=== PATIENT | female | born 1970 | race American Indian/Alaskan Native ===

== ENCOUNTER 2020-04-11 19:27 | Emergency (ER) | payer MEDICARE ==
[2020-04-11] MEDS ORDERED: ASPIRIN 325 MG TAB PO ONE (19:46)
[2020-04-11 19:47] VITALS: BP 127/77
--- NOTE | 2020-04-11 20:21 | XRay Report ---
CHEST 2 VIEWS INDICATION / CLINICAL INFORMATION: Chest Pain. COMPARISON: None available. FINDINGS: SUPPORT DEVICES: None. HEART / MEDIASTINUM: No significant abnormality. LUNGS / PLEURA: No significant pulmonary or pleural abnormality. .No pneumothorax. ADDITIONAL FINDINGS: No significant additional findings. IMPRESSION: 1. No acute findings. Signer Name: Jovanny May MD Signed: 04/11/2020 8:16 PM Workstation Name: [id number]
[2020-04-11 20:27] LABS: Hematocrit 38.7 % (30.3-42.9); Hemoglobin 12.3 gm/dl (10.1-14.3); Mean Corpuscular HGB Conc 32 % (30-34); Mean Corpuscular Volume 79 fl (79-97); Platelet Count 227 K/mm3 (140-440); Red Blood Count 4.92 M/mm3 (3.65-5.03)
[2020-04-11 20:29] LABS: BUN/Creatinine Ratio 12; Blood Urea Nitrogen 12 mg/dL (7-17); Calcium 8.9 mg/dL (8.4-10.2); Hemolysis Index 8; Red Cell Distribution Width 23.7 % (13.2-15.2)
[2020-04-11 21:04] LABS: Total Cells Counted 100
[2020-04-11 21:06] LABS: Anisocytosis 2+; Hypochromasia 1+; Ovalocytes Rare; Platelet Estimate Consistent w Auto
== END 2020-04-11 21:50 | disposition left against medical advice (07) ==
LOC: ED 19:27
DX: R07.9 Chest pain, unspecified (principal); Z53.21 Procedure and treatment not carried out due to patient leaving prior to being seen by health care provider
CPT/HCPCS: 36415; 71046; 80048; 84484; 85007; 85025; 93005

== ENCOUNTER 2020-05-13 08:53 | Emergency (ER) | payer MEDICARE ==
--- NOTE | 2020-05-13 09:10 | Emergency Department Report ---
ED ENT HPI - General Chief complaint: Sore Throat Stated complaint: MINT IN THROAT Time Seen by Provider: 05/13/20 09:08 Source: patient Mode of arrival: Ambulatory Limitations: No Limitations - History of Present Illness Initial comments: 49-year-old -[place] female states that she put hard mint candy in her mouth and she feels like it went down her throat the wrong way And is now stuck in her throat. This occurred less than an hour ago. Patient reports history of MS states that her balance is sometimes off and that may explain why she i nserted the candy in her mouth incorrectly. Patient in no acute distress her respirations easy unlabored oxygen saturations 100% she has the sensation of foreign body in her throat,no drooling or or signs that her airway is compromised MD complaint: foreign body -: Sudden Location: throat Consistency: constant Improves with: none Worsens with: swallowing Associated Symptoms: pain with swallowing, other (Foreign body sensation in the throat) - Related Data Allergies Allergy/AdvReac Type Severity Reaction Status Date / Time metformin [From Glucophage] Allergy Anaphylaxis Verified 04/11/20 19:43 morphine Allergy Anaphylaxis Verified 04/11/20 19:43 ED Dental HPI - General Chief complaint: Sore Throat Stated complaint: MINT IN THROAT Time Seen by Provider: 05/13/20 09:08 Source: patient Mode of arrival: Ambulatory Limitations: No Limitations - History of Present Illness MD complaint: foreign body -: Sudden (Just prior to arrival) Severity: mild Quality: aching, other (Foreign body sensation) Consistency: constant Improves with: none Worsens with: swallowing - Related Data Allergies Allergy/AdvReac Type Severity Reaction Status Date / Time metformin [From Glucophage] Allergy Anaphylaxis Verified 04/11/20 19:43 morphine Allergy Anaphylaxis Verified 04/11/20 19:43 ED Review of Systems ROS: Stated complaint: MINT IN THROAT Other details as noted in HPI Comment: All other systems reviewed and negative Constitutional: denies: chills, fever, malaise Eyes: denies: eye pain, eye discharge ENT: throat pain (Foreign body sensation in her throat). denies: ear pain, dental pain, congestion Respiratory: denies: cough, SOB with exertion, wheezing Cardiovascular: denies: paroxysmal nocturnal dyspnea Gastrointestinal: denies: abdominal pain, nausea, vomiting, diarrhea, constipation Genitourinary: denies: urgency, dysuria, hematuria, discharge, dyspareunia Musculoskeletal: denies: back pain Neurological: denies: headache, weakness, numbness, paresthesias ED Past Medical Hx - Past Medical History Hx Diabetes: Yes Additional medical history: MS, PCOS, Fibromalgia, Anemic - Surgical History Additional Surgical History: Gastric Bypass 2011 - Social History Smoking Status: Never Smoker ED Physical Exam - General Limitations: No Limitations General appearance: alert, in no apparent distress - Head Head exam: Present: atraumatic - Eye Eye exam: Present: normal appearance - ENT ENT exam: Present: normal orophraynx, mucous membranes moist - Respiratory Respiratory exam: Present: normal lung sounds bilaterally, respiratory distress - Cardiovascular Cardiovascular Exam: Present: regular rate, normal heart sounds - Neurological Exam Neurological exam: Present: alert, oriented X3 - Psychiatric Psychiatric exam: Present: normal affect - Skin Skin exam: Present: warm, dry, intact, normal color ED Course Vital Signs 05/13/20 05/13/20 09:00 13:21 Temperature 98.0 F 97.8 F Pulse Rate 128 H 93 H Respiratory 20 14 Rate Blood Pressure 150/88 127/85 O2 Sat by Pulse 100 100 Oximetry - Reevaluation(s) Reevaluation #1: 05/13/20 11:03 Patient in no acute distress tolerating oral fluids were awaiting CT results 05/13/20 12:[address] Lamb plan is to consult [facility] Reevaluation #2: 05/13/20 12:31 I discussed patient's condition with Dr. Gomez from [facility]. She recommends giving patient a dose of glucagon and then repeating x-ray to evaluate where the foreign body is.. Patient is currently still in no distress she is tolerating water well 05/13/20 14:15 Reevaluation #3: 05/13/20 15:42 Patient continues to do well no airway compromise no drooling she is able to drink juice without any difficulty I spoke to Dr. Gomez she agrees with the plan of care to discharge patient home and follow-up as needed ED Medical Decision Making - Radiology Data Radiology results: report reviewed CT NECK W/CON IMPRESSION: 1. 23 mm diameter by 7 mm cystic round radiopaque foreign body is lodged in the cervical esophagus at the C7 level. Xray soft tissue neck IMPRESSION: 1. No foreign body is identified. No findings to correspond with the finding on recent CT neck - Medical Decision Making Patient presents to the emergency room with hard mint candy stuck in her throat. CT of the neck with contrast showed foreign body in the esophagus around C7. I discussed with Dr. Woodard. while in the emergency room did not have respiratory distress. she is able to handle oral secretions well. She is able to swallow clear fluids and her breathing is unlabored. I consulted Dr. Gomez on- call clearing inspector from [facility]. She recommended glucagon and then repeat x-ray of the soft tissue neck. After glucagon was given and the x- ray of the soft tissue neck repeated. I spoke with Dr. Gomez. she recommend discharge home with outpatient follow-up. Patient reports she was already scheduled for an EGD at [facility] because of her history of MS. EGD scheduled for May. Patient doing well able to handle secretions and to eat and swallow with no difficulty. Critical Care Time: No Critical care attestation.: If time is entered above; I have spent that time in minutes in the direct care of this critically ill patient, excluding procedure time. ED Disposition Clinical Impression: Foreign body in throat Qualifiers: Encounter type: initial encounter Qualified Code(s): T17.208A - Unspecified foreign body in pharynx causing other injury, initial encounter Disposition: DC-01 TO HOME OR SELFCARE Is pt being admited?: No Does the pt Need Aspirin: No Condition: Stable Instructions: Swallowed Foreign Body, Adult Additional Instructions: Follow-up with your clearing inspector as scheduled. Return to the emergency room for any difficulty breathing or swallowing Referrals: PRIMARY CARE, [Primary Care Provider] - 3-5 Days Time of Disposition: 15:42
--- NOTE | 2020-05-13 09:48 | Cat Scan Report ---
CT NECK WITHOUT INTRAVENOUS CONTRAST AND WITH MULTIPLANAR RECONSTRUCTION CLINICAL HISTORY: Ingested, retained foreign body. TECHNIQUE: 0.625 mm thick contiguous axial scans were obtained from the skull base down to the aortic arch durin g intravenous contrast administration. In addition to evaluation of axial source images sagittal and coronal multiplanar reconstructions were produced and reviewed for this report. All CT imaging studies performed at this facility utilize dose modulation, iterative reconstruction o r weight based dosing, if appropriate, to obtain the lowest achievable radiation dose. FINDINGS: There is a 23 mm diameter, 7 mm thick radiopaque foreign body lodged in the cervical esophagus at the C7 level. No abnormalities are seen along the course of the airway. Nasopharynx, oropharynx, hypopharynx, laryn x and visualized portions of the subglottic airway all have an unremarkable appearance. There is no indication of cervical lymphadenopathy. No abnormalities are seen in evaluation of the oral cavity and tongue. The floor the mouth has a norm al appearance. The parotid and submandibular salivary glands have a normal appearance. Evaluation of the nasal cavity reveals no abnormality. The paranasal sinuses are free from inflammato ry mucosal disease. Evaluation of the orbits reveals no abnormality. The thyroid gland is normal in size and homogeneous in attenuation. No focal thyroid lesions are iden tified. Evaluation of the cervical spine reveals no significant abnormality. Normal alignment is maintained. No significant degenerative changes are identified. Evaluation of the lung apices reveals no abnormality. There is no indication of lung nodule or infilt rate. The visualized portions of the superior mediastinum have an unremarkable appearance. IMPRESSION: 1. 23 mm diameter by 7 mm cystic round radiopaque foreign body is lodged in the cervical esophagus at the C7 level. Signer Name: Kevon Almendarez MD Signed: 05/13/2020 9:44 AM Workstation Name: [id number]
[2020-05-13] MEDS ORDERED: GLUCAGON (HUMAN RECOMBINANT) 1 MG/ML INJ IV ONE (12:32)
[2020-05-13] MEDS ORDERED: GLUCAGON (HUMAN RECOMBINANT) 1 MG/ML INJ IM ONE (12:39)
[2020-05-13 13:24] VITALS: BP 127/85
--- NOTE | 2020-05-13 14:56 | XRay Report ---
NECK SOFT TISSUE 2 VIEW(S) INDICATION / CLINICAL INFORMATION: r/o foreign body COMPARISON: CT neck 05/13/2020 FINDINGS: EPIGLOTTIS: No significant abnormality. RETROPHARYNGEAL SOFT TISSUES: No significant abnormality. AIRWAY: No significant abnormality. RADIOPAQUE FOREIGN BODY: None. SKELETAL SYSTEM: No significant abnormality. ADDITIONAL FINDINGS: None. IMPRESSION: 1. No foreign body is identified. No findings to correspond with the finding on recent CT neck examin ation. Recommend further follow-up/evaluation as warranted. Signer Name: Lan Combs MD Signed: 05/13/2020 2:52 PM Workstation Name: [id number]
== END 2020-05-13 15:51 | disposition home or self-care (01) ==
LOC: ED 08:53
DX: T17.298A Other foreign object in pharynx causing other injury, initial encounter (principal); E11.9 Type 2 diabetes mellitus without complications; Z86.2 Personal history of diseases of the blood and blood-forming organs and certain disorders involving the immune mechanism; Z98.890 Other specified postprocedural states; Z88.6 Allergy status to analgesic agent; E28.2 Polycystic ovarian syndrome; X58.XXXA Exposure to other specified factors, initial encounter; Y93.89 Activity, other specified; Y92.89 Other specified places as the place of occurrence of the external cause; Y99.8 Other external cause status
CPT/HCPCS: 70360; 70490; 96372; 99283; J1610